=== PATIENT | male | born 1960 | race Caucasian/White ===

== ENCOUNTER 2021-04-12 14:33 | Emergency (ER) | payer MEDICAID ==
[2021-04-12] MEDS ORDERED: Ibuprofen 400 MG Tab PO ONE (16:25)
--- NOTE | 2021-04-12 16:31 | EDM.PDOC ---
ED HPI GENERAL MEDICAL PROBLEM - General Chief Complaint: Lower Extremity Injury/Pain Stated Complaint: MEDICAL VIA [facility] Time Seen by Provider: 04/12/21 16:15 Source of Information: Reports: Patient History Limitations: Reports: No Limitations - History of Present Illness INITIAL COMMENTS - FREE TEXT/NARRATIVE: Arrived by ambulance for weakness and right-sided leg pain predominantly is hip. Ambulance crew said they had been there earlier today and he refused to write at that time. Patient states he drinks 4 to 5 ounces at a time preferably bourbon. Patient does not smell of alcohol however he is unkept and uncomfortable. Patient states alcohol last drink was 2 to 3 days ago and denies that no alcohol in the last 2 days is a problem for him. Patient states his weakness has come over the last few days he does note tick bites on his lower right and left extremity. He states he lives in a camper and has been warm the last few days. Onset: Gradual Onset Date: 04/10/21 Duration: Hour(s):, Getting Worse Location: Reports: Upper Extremity, Right (Pain), Generalized (Weakness) Quality: Reports: Ache Severity: Moderate Improves with: Reports: Medication (Ibuprofen) Worsens with: Reports: None Context: Reports: Activity Associated Symptoms: Denies: Fever/Chills, Headaches, Loss of Appetite, Weakness Treatments ADMINISTRATIVE SALES ASSISTANT: Reports: Other (see below) (None) - Related Data Allergies Allergy/AdvReac Type Severity Reaction Status Date / Time No Known Allergies Allergy Verified 04/12/21 14:46 Home Meds: Home Meds NK [No Known Home Meds] 04/12/21 [History] Past Medical History - Past Surgical History Musculoskeletal Surgical History: Reports: Other (See Below) Other Musculoskeletal Surgeries/Procedures:: NECK SURGERY, TOOK OUT BONE IN RIGHT HIP. NEEDS SHOULDER SURGERY Social & Family History - Tobacco Use Tobacco Use Status *Q: Current Every Day Tobacco User Years of Tobacco use: 20 Packs/Tins Daily: 0.5 - Caffeine Use Caffeine Use: Reports: Coffee, Soda, Tea - Alcohol Use Days Per Week of Alcohol Use: 7 Number of Drinks Per Day: 4 Total Drinks Per Week: 28 - Recreational Drug Use Recreational Drug Use: No Review of Systems - Review of Systems Review Of Systems: See Below Constitutional: Reports: Weakness Eyes: Reports: No Symptoms Ears: Reports: No Symptoms Nose: Reports: No Symptoms Mouth/Throat: Reports: No Symptoms Respiratory: Reports: No Symptoms Cardiovascular: Reports: No Symptoms GI/Abdominal: Reports: No Symptoms Genitourinary: Reports: No Symptoms Musculoskeletal: Reports: Joint Pain (Left hip), Other (Generalized weakness, difficulty walking) Skin: Reports: Lesions (Multiple healing is on bilateral lower legs patient states some tick bites) Neurological: Reports: No Symptoms Psychiatric: Reports: Agitation ED EXAM, GENERAL - Physical Exam Exam: See Below Exam Limited By: No Limitations General Appearance: Alert, Mild Distress Respiratory/Chest: No Respiratory Distress, Lungs Clear, Normal Breath Sounds Cardiovascular: Normal Peripheral Pulses, Regular Rate, Rhythm, No Edema GI/Abdominal: Normal Bowel Sounds, Soft, Non-Tender Back Exam: Normal Inspection, Full Range of Motion Extremities: Limited Range of Motion Neurological: Alert, Oriented Skin Exam: Warm, Dry, Other (Bug bites likely bilateral lower extremities, multiple areas scabbed over, appears to be bug bites. Patient does state some more tick bites.) Lymphatic: No Adenopathy Course - Vital Signs Text/Narrative:: Vital signs stable Last Recorded V/S: Last Vital Signs Temp 37.0 C 04/12/21 14:47 Pulse 92 04/12/21 14:47 Resp 20 04/12/21 14:47 BP 171/94 H 04/12/21 14:47 Pulse Ox 96 04/12/21 14:47 - Orders/Labs/Meds Orders: Active Orders 24 hr Category Date Time Status LYME, TOTAL AB TEST/REFLEX Stat Lab 04/12/21 15:39 Received Labs: Laboratory Tests 04/12/21 04/12/21 04/12/21 Range/Units 15:08 15:39 15:39 WBC 11.4 H (4.5-11.0) K/uL RBC 5.84 (4.30-5.90) M/uL Hgb 17.3 H (12.0-15.0) g/dL Hct 50.6 (40.0-54.0) % MCV 87 (80-98) fL MCH 30 (27-31) pg MCHC 34 (32-36) % Plt Count 357 (150-400) K/uL Neut % (Auto) 70.2 H (36-66) % Lymph % (Auto) 19.8 L (24-44) % [place] % (Auto) 8.3 H (2-6) % Eos % (Auto) 1.3 L (2-4) % Baso % (Auto) 0.4 (0-1) % ESR 10 (0-20) mm/hr Sodium 140 (140-148) mmol/L Potassium 4.1 (3.6-5.2) mmol/L Chloride 102 (100-108) mmol/L Carbon Dioxide 24 (21-32) mmol/L Anion Gap 14.3 H (5.0-14.0) mmol/L BUN 16 (7-18) mg/dL Creatinine 1.0 (0.8-1.3) mg/dL Est Cr Clr Drug Dosing 88.38 mL/min Estimated GFR (MDRD) > 60 (>60) Glucose 113 H (74-106) mg/dL Calcium 8.9 (8.5-10.1) mg/dL C-Reactive Protein 0.09 (0.0-0.3) mg/dL Meds: Medications Discontinued Medications Generic Name Dose Route Start Last Admin Trade Name Gil PRN Reason Stop Dose Admin Ibuprofen 400 mg 04/12/21 16:25 04/12/21 16:36 Ibuprofen 400 Mg Tab PO 04/12/21 16:26 400 mg ONETIME ONE Administration Patient requesting ibuprofen for generalized pain predominantly right hip. He asked for something stronger and this was denied. He states he uses ibuprofen at home and this was provided. - Re-Assessments/Exams Free Text/Narrative Re-Assessment/Exam: 04/12/21 16:35 Labs did not reveal any significant abnormalities. No electrolyte imbalance. Sedimentation rate is not elevated. Educated patient on lab values. Provided ibuprofen for pain relief, patient would like to go home. Departure - Departure Time of Disposition: 18:37 Disposition: Home, Self-Care 01 Clinical Impression: Weakness - Discharge Information Instructions: Hip Pain Referrals: PCP,None [Primary Care Provider] - Forms: ED Department Discharge Additional Instructions: Pt to followup with primary care if continues to have further problems Sepsis Event Note (ED) - Evaluation Sepsis Screening Result: No Definite Risk - Focused Exam Vital Signs: Vital Signs Temp Pulse Resp BP Pulse Ox 04/12/21 14:47 37.0 C 92 20 171/94 H 96 - My Orders Last 24 Hours: My Active Orders 04/12/21 15:39 LYME, TOTAL AB TEST/REFLEX Stat - Assessment/Plan Last 24 Hours: My Active Orders 04/12/21 15:39 LYME, TOTAL AB TEST/REFLEX Stat
[2021-04-15 12:09] LABS: LYME IGG/IGM AB <0.91 ISR (0.00-0.90)
== END 2021-04-12 18:37 | disposition home or self-care (01) ==
LOC: JP.ED 14:33
DX: R53.1 Weakness (principal); Z72.0 Tobacco use
CPT/HCPCS: 36415; 80048; 85025; 85651; 86140; 86618; 99285; A9270

== ENCOUNTER 2023-08-21 04:19 | Emergency (ER) | payer SELFPAY | END 2023-08-21 12:37 | disposition home or self-care (01) | LOC: JP.ED 04:19 | DX: R44.3 Hallucinations, unspecified (principal); F17.210 Nicotine dependence, cigarettes, uncomplicated | CPT/HCPCS: 99285 ==